=== PATIENT | female | born 1935 | race Caucasian/White ===

== ENCOUNTER 2022-01-27 10:47 | Observation (INO) | payer OTHER, SELFPAY ==
[2022-01-27] VITALS (28 sets, daily range): BP systolic 108–201; BP diastolic 52–95; PULSE 89–90; RESP 18–32; TEMP 35.9–36.7; O2SAT 89–98; BMI 40.3
[2022-01-27] MEDS: ALBUTEROL 2.5 MG/3 ML NEB (ADULT) INH (11:10)
--- NOTE | 2022-01-27 11:16 | DI.RAD.S_ITS ---
PROCEDURE: XR CHEST 1V INDICATIONS: chest pain TECHNIQUE: One view of the chest was acquired. COMPARISON: None. FINDINGS: Surgical changes and devices: Right chest wall pacer is seen with a single intact lead. Lungs and pleura: Subtle increased interstitial markings are noted, probably chronic but could be due to mild pulmonary edema. No prior imaging is available for comparison. No pleural effusions or pneumothorax. Mediastinum: Mediastinal contours appear normal. Heart size is enlarged. Bones and chest wall: No suspicious bony lesions. Overlying soft tissues appear unremarkable. IMPRESSION: 1. Cardiomegaly. 2. Subtle increased interstitial markings bilaterally could be chronic or due to mild pulmonary edema. No prior imaging is available for comparison. Dictated by: Edilberto Young M.D. on 01/27/2022 at 11:06 Approved by: Edilberto Young M.D. on 01/27/2022 at 11:07
[2022-01-27 11:58] LABS: Add Manual Diff / Slide Review NO; Basophils Absolute Auto 100 /uL (0-100); Basophils Percent Auto 0.9 % (0-2); Eosinophils Absolute Auto 0 /uL (0-450); Eosinophils Percent Auto 0.1 % (2-4); Hematocrit 41.9 % (36-46); Hemoglobin 14.1 g/dL (12.0-16.0); Lymphocytes Absolute Auto 1300 /uL (1100-4500); Lymphocytes Percent Auto 16.7 % (25-40); Mean Corpuscular HGB Conc 33.6 % (30-36); Mean Corpuscular Hemoglobin 28.8 PG (26-34); Mean Corpuscular Volume 85.6 fL (80-100); Monocytes Absolute Auto 1100 /uL (0-900); Monocytes Percent Auto 13.2 % (3-14); Neutrophils Absolute Auto 5600 /uL (1500-7000); Neutrophils Percent Auto 69.1 % (50-75); Platelet Count 203 X10^3/uL (150-400); Red Blood Cell Count 4.89 X10^6/uL (4.0-5.2); Red Cell Distribution Width 14.9 % (11.6-14.8); White Blood Cell Count 8.1 X10^3/uL (4.5-11.0)
[2022-01-27 12:08] LABS: COVID19 -Nasal RAPID Negative (Negative)
[2022-01-27 12:13] LABS: Alanine Aminotransferase 21 IU/L (<35); Albumin 4.3 g/dL (3.5-5.0); Albumin Globulin Ratio 1.2 (1.0-2.8); Alkaline Phosphatase 83 U/L (38-126); Aspartate Aminotransferase 33 IU/L (14-36); BUN Creatinine Ratio 18.4 (6-22); Blood Urea Nitrogen 19 mg/dL (7-17); Carbon Dioxide 25 mmol/L (22-32); Chloride 105 mmol/L (98-107); Creatine Kinase 153 U/L (30-135); Estimated Glomerular Filt Rate 54 mL/min (>60); Globulin 3.6 g/dL (1.7-4.1); Glucose 112 mg/dL (80-110); HEMOLYSIS 19 (0-50); Lipase 46 U/L (23-300); Magnesium 1.7 mg/dL (1.6-2.3); Sodium 138 mmol/L (137-145); Total Protein 7.9 g/dL (6.3-8.2)
[2022-01-27 12:14] LABS: Appearance Urine UA CLEAR; Bilirubin Urine UA NEGATIVE (NEGATIVE); Color Urine UA YELLOW; Glucose Urine UA NEGATIVE (Negative); Ketones Urine UA NEGATIVE (NEGATIVE); Leukocyte Esterase Urine UA 2+ (NEGATIVE); Nitrite Urine UA POSITIVE (Negative); Occult Blood Urine UA 3+ (Negative); Protein Urine UA 1+ (Negative); Urobilinogen Urine UA 0.2 E.U./dL (0.2)
[2022-01-27 12:28] LABS: NT-proBNP (BNP-Adult 18+) 3980 pg/mL (<450); Troponin I 0.151 ng/mL (0.01-0.034)
--- NOTE | 2022-01-27 12:32 | ED.SOB ---
HPI - SOB/Dyspnea General Chief Complaint: Shortness of Breath/Dyspnea Stated Complaint: cough weezing breathing fast x7 days Time Seen by Provider: 01/27/22 11:02 Source: patient and family (granddaughter) Mode of arrival: Ambulatory Limitations: no limitations History of Present Illness HPI Narrative: This is an 86-year-old female with history of atrial fibrillation, CHF, prior DC with pacemaker, cardiac stents, prior blood clot who used to be anticoagulated for Coumadin. Patient had cardiac stents placed and had complication with vascular injury and up with ex lap, open wound and cholecystectomy. She is also had breast cancer with a left partial mastectomy. Patient has stopped all of her medications in the last year including her Coumadin, antihypertensives and Lasix. Patient has had increasing shortness of breath, nonproductive cough and orthopnea for the past week. She denies any chest pain or pressure. She has been wheezy which they have noted particularly with ambulation. No fevers or chills. No nausea or vomiting. No diarrhea constipation. No urinary issues. No new swelling in extremities. Patient tried home pediatric dose of albuterol yesterday. She lives in [place] she has not been back to see the doctor for some time. Related Data Previous Rx's Medication Instructions Recorded furosemide 40 mg tablet 40 mg PO QAM 30 days #30 tabs 01/28/22 metoprolol tartrate 100 mg tablet 100 mg PO QAM 30 days #30 tabs 01/28/22 nitrofurantoin macrocrystal 100 mg 100 mg PO BID 5 days #10 caps 01/28/22 capsule rivaroxaban 20 mg tablet 20 mg PO QPM 30 days #30 tabs 01/28/22 Allergies Allergy/AdvReac Type Severity Reaction Status Date / Time No Known Drug Allergies Allergy Unverified 01/27/22 16:29 Review of Systems Review of Systems ROS Unobtainable: All systems reviewed & are unremarkable except as noted in HPI and below Patient History Medical History (Updated 01/27/22 @ 16:22 by Nilson Nolan DO) CAD (coronary artery disease) DVT (deep venous thrombosis) Heart failure HTN (hypertension) Pacemaker Paroxysmal atrial fibrillation Surgical History (Updated 01/27/22 @ 16:10 by Nilson Nolan DO) H/O exploratory laparotomy H/O heart artery stent Family History (Updated 01/27/22 @ 16:10 by Nilson Nolan DO) Father Hypertension Mother Hypertension Social History household members: children Smoking Status: Never smoker alcohol intake: never Smoking Status: Former smoker alcohol intake frequency: other Substance Use Type: does not use Exam Narrative Exam Narrative: GENERAL: Alert and oriented x three, elderly female in mild distress. HEENT: Head normocephalic, atraumatic, EOMI, pupils reactive, face symmetric, moist mucous membranes NECK: Supple, full range of motion CARDIOVASCULAR: Regular rate and rhythm without murmurs, rubs or gallops. No swelling bilateral lower extremities. RESPIRATORY: Breath sounds equal bilaterally, positive bilateral expiratory wheezes, no rales or rhonchi. Intermittent tachypnea. Patient is able to speak in full sentences. She is a dry nonproductive cough. Patient said about 30? on her left side. ABDOMEN: Soft, nontender. Normoactive bowel sounds all 4 quadrants. No guarding or rebound, rigidity, no mass : No CVA tenderness EXTREMITIES: Normal range of motion, no clubbing or edema. Neurovascularly intact NEUROLOGICAL: Cranial nerves II through XII grossly intact. Moving all extremities SKIN: Warm, dry, no petechiae, no rashes or lesions. Initial Vital Signs Initial Vital Signs: Vital Signs Temperature 98.0 F 01/27/22 11:04 Pulse Rate 90 01/27/22 11:04 Respiratory Rate 22 01/27/22 11:04 Blood Pressure 201/95 H 01/27/22 11:04 Pulse Oximetry 92 01/27/22 11:04 Oxygen Delivery Method 01/27/22 11:04 Course Orders Ordered: Discontinued Medications Acetaminophen (Acetaminophen 325 Mg Tablet) 975 mg PO Q8H PRN PRN Reason: Pain, Mild (1-3) Albuterol (Albuterol 2.5 Mg/3 Ml Neb (Adult)) 2.5 mg INH NOW ONE Stop: 01/27/22 11:07 Last Admin: 01/27/22 11:10 Dose: 2.5 mg Documented By: SAT Albuterol (Albuterol 2.5 Mg/3 Ml Neb (Adult)) 2.5 mg INH [id number] PRN PRN Reason: Shortness Of Breath Albuterol/Ipratropium (Albuterol/Ipratropium 3 Ml Ampul) 3 ml INH [id number] PRN PRN Reason: Shortness Of Breath Last Admin: 01/28/22 09:18 Dose: 3 ml Documented By: Admin: 01/28/22 07:38 Dose: 3 ml Documented By: Admin: 01/27/22 13:14 Dose: 3 ml Documented By: YARELIS Apixaban (Apixaban 5 Mg Tablet) 5 mg PO BID YOHANNES Last Admin: 01/28/22 07:27 Dose: 5 mg Documented By: Admin: 01/27/22 22:16 Dose: 5 mg Documented By: SHEYLA Aspirin (Aspirin 81 Mg Chew Tab) 324 mg PO NOW ONE Stop: 01/27/22 12:56 Last Admin: 01/27/22 13:22 Dose: 324 mg Documented By: ORNI Benzonatate (Benzonatate 100 Mg Capsule) 100 mg PO TID PRN PRN Reason: Cough Last Admin: 01/28/22 07:27 Dose: 100 mg Documented By: MELANIE Bumetanide (Bumetanide 1 Mg/4 Ml Vial) 0.5 mg IV NOW ONE Stop: 01/27/22 13:10 Last Admin: 01/27/22 13:23 Dose: 0.5 mg Documented By: RONI Furosemide (Furosemide 40 Mg/4 Ml Vial) 40 mg IV NOW ONE Stop: 01/27/22 13:03 Last Admin: 01/27/22 14:53 Dose: Not Given Documented By: RONI Heparin Sodium (Porcine) (Heparin 5,000 Unit/Ml Vial) 5,000 unit IV NOW ONE Stop: 01/27/22 12:56 Last Admin: 01/27/22 13:22 Dose: 5,000 unit Documented By: RONI Ceftriaxone Sodium 2,000 mg/ (Sodium Chloride) 100 mls @ 200 mls/hr IV NOW ONE Stop: 01/27/22 15:29 Last Infusion: 01/27/22 23:27 Dose: 0 mls/hr Documented By: Admin: 01/27/22 16:11 Dose: 200 mls/hr Documented By: RONI Ceftriaxone Sodium 1,000 mg/ (Sodium Chloride) 100 mls @ 200 mls/hr IV Q24H YOHANNES Stop: 01/30/22 14:59 Methylprednisolone (Methylprednisolone 125 Mg/2 Ml Vial) 125 mg IV NOW ONE Stop: 01/27/22 12:56 Last Admin: 01/27/22 13:22 Dose: 125 mg Documented By: NR Ondansetron HCl (Ondansetron 4 Mg Odt) 4 mg PO Q8HR PRN PRN Reason: Nausea And Vomiting Consultations Consultation #1: Dr. Salas, cardiology. Recommends aspirin, Bumex preferred over Lasix, echo he would not persist with heparin drip at this time in LEs patient is having active chest pain or persistently rising troponin. Recommend diuresing about 2 L of next 24-48 hours if patient is felt to be comfortable kept here he feels this is appropriate. If hospitalist his uncomfortable keeping patient or myself they are happy to follow the patient at outside facility. Vital Signs Vital signs: Vital Signs - 8 hr 01/27/22 11:04 01/27/22 11:20 01/27/22 11:28 Temperature 98.0 F Pulse Rate 90 89 89 Respiratory Rate 22 32 H 22 Blood Pressure 201/95 H Pulse Oximetry 92 92 94 Oxygen Delivery Method Room Air Room Air 01/27/22 11:30 01/27/22 11:30 01/27/22 11:46 Temperature Pulse Rate 89 Respiratory Rate 21 Blood Pressure 186/89 H 129/78 Pulse Oximetry 93 Oxygen Delivery Method 01/27/22 11:46 01/27/22 11:50 01/27/22 11:50 Temperature Pulse Rate 89 89 Respiratory Rate 22 22 Blood Pressure 143/85 H Pulse Oximetry 94 94 Oxygen Delivery Method 01/27/22 12:00 01/27/22 12:00 01/27/22 12:10 Temperature Pulse Rate 89 Respiratory Rate Blood Pressure 141/64 H 138/71 Pulse Oximetry 92 Oxygen Delivery Method 01/27/22 12:10 01/27/22 12:20 01/27/22 12:20 Temperature Pulse Rate 90 89 Respiratory Rate 22 25 H Blood Pressure 135/64 Pulse Oximetry 94 91 Oxygen Delivery Method 01/27/22 12:30 01/27/22 12:31 01/27/22 12:31 Temperature Pulse Rate 89 89 Respiratory Rate 27 H Blood Pressure 152/67 H Pulse Oximetry 92 93 Oxygen Delivery Method 01/27/22 12:40 01/27/22 12:40 01/27/22 13:14 Temperature Pulse Rate 89 Respiratory Rate 27 H Blood Pressure 127/60 Pulse Oximetry 92 93 Oxygen Delivery Method Room Air [facility]/Dyspnea Lab Data Result diagrams: 01/28/22 05:42 01/28/22 05:42 Labs: Lab Results 01/27/22 01/27/22 01/27/22 Range/Units 11:24 11:42 11:42 WBC 8.1 (4.5-11.0) X10^3/uL RBC 4.89 (4.0-5.2) X10^6/uL Hgb 14.1 (12.0-16.0) g/dL Hct 41.9 (36-46) % MCV 85.6 (80-100) fL MCH 28.8 (26-34) PG MCHC 33.6 (30-36) % RDW 14.9 H (11.6-14.8) % Plt Count 203 (150-400) X10^3/uL Neut % (Auto) 69.1 (50-75) % Lymph % (Auto) 16.7 L (25-40) % Piatt % (Auto) 13.2 (3-14) % Eos % (Auto) 0.1 L (2-4) % Baso % (Auto) 0.9 (0-2) % Neut # (Auto) 5600 (0856-9280) /uL Lymph # (Auto) 1300 (7082-4899) /uL Piatt # (Auto) 1100 H (0-900) /uL Eos # (Auto) 0 (0-450) /uL Baso # (Auto) 100 (0-100) /uL PT (10.1-12.7) SECONDS INR (0.9-1.3) APTT (26.4-36.2) SECONDS Sodium 138 (137-145) mmol/L Potassium 4.0 (3.4-5.1) mmol/L Chloride 105 (98-107) mmol/L Carbon Dioxide 25 (22-32) mmol/L BUN 19 H (7-17) mg/dL Creatinine 1.03 (0.52-1.04) mg/dL Estimated GFR 54 L (>60) mL/min BUN/Creatinine Ratio 18.4 (6-22) Glucose 112 H (80-110) mg/dL Calcium 9.0 (8.4-10.2) mg/dL Magnesium 1.7 (1.6-2.3) mg/dL Total Bilirubin 1.0 (0.2-1.3) mg/dL AST 33 (14-36) IU/L ALT 21 (<35) IU/L Alkaline Phosphatase 83 (38-126) U/L Total Creatine Kinase 153 H (30-135) U/L CK-MB (CK-2) 1.49 (<2.37) ng/mL CK-MB (CK-2) Rel Index 1.0 L (1.5-5.0) % Troponin I 0.151 H* (0.01-0.034) ng/mL NT-Pro-B Natriuret Pep (<450) pg/mL Total Protein 7.9 (6.3-8.2) g/dL Albumin 4.3 (3.5-5.0) g/dL Globulin 3.6 (1.7-4.1) g/dL Albumin/Globulin Ratio 1.2 (1.0-2.8) Lipase 46 (23-300) U/L Urine Color Urine Appearance Urine pH (4.5-8.0) Ur Specific [place] (1.000-1.035) Urine Protein (Negative) Urine Glucose (UA) (Negative) g/dL Urine Ketones (NEGATIVE) Urine Occult Blood (Negative) Urine Nitrate (Negative) Urine Bilirubin (NEGATIVE) Urine Urobilinogen (0.2) E.U./dL Ur Leukocyte Esterase (NEGATIVE) Urine RBC (0-5/HPF) Urine WBC (0-5/HPF) Ur Squamous Epith Cells (0-5/HPF) Urine Bacteria (None) Ur Culture Indicated? Chlamy pneumoniae PCR (Not Detect) Adenovirus (PCR) (Not Detect) B. pertussis DNA (PCR) (Not Detecte) B.parapertussis DNA PCR (Not Detecte) Coronavirus OC43 (PCR) (Not Detect) Coronavirus HKU1 (PCR) (Not Detect) Coronavirus 229E (PCR) (Not Detect) SARS-CoV-2 (PCR) Negative (Negative) Coronavirus NL63 (PCR) (Not Detect) Human Metapneumovir PCR (Not Detect) Influenza Type A (PCR) (Not Detect) Influenza Type B (PCR) (Not Detect) M. pneumoniae (PCR) (Not Detect) Parainfluenza 1 (PCR) (Not Detect) Parainfluenza 2 (PCR) (Not Detect) Parainfluenza 3 (PCR) (Not Detect) Parainfluenza 4 (PCR) (Not Detect) RSV (PCR) (Not Detect) Entero/Rhino (PCR) (Not Detect) 01/27/22 01/27/22 01/27/22 Range/Units 11:42 11:42 12:00 WBC (4.5-11.0) X10^3/uL RBC (4.0-5.2) X10^6/uL Hgb (12.0-16.0) g/dL Hct (36-46) % MCV (80-100) fL MCH (26-34) PG MCHC (30-36) % RDW (11.6-14.8) % Plt Count (150-400) X10^3/uL Neut % (Auto) (50-75) % Lymph % (Auto) (25-40) % Piatt % (Auto) (3-14) % Eos % (Auto) (2-4) % Baso % (Auto) (0-2) % Neut # (Auto) (3463-6178) /uL Lymph # (Auto) (6504-5507) /uL Piatt # (Auto) (0-900) /uL Eos # (Auto) (0-450) /uL Baso # (Auto) (0-100) /uL PT 12.3 (10.1-12.7) SECONDS INR 1.1 (0.9-1.3) APTT 28 (26.4-36.2) SECONDS Sodium (137-145) mmol/L Potassium (3.4-5.1) mmol/L Chloride (98-107) mmol/L Carbon Dioxide (22-32) mmol/L BUN (7-17) mg/dL Creatinine (0.52-1.04) mg/dL Estimated GFR (>60) mL/min BUN/Creatinine Ratio (6-22) Glucose (80-110) mg/dL Calcium (8.4-10.2) mg/dL Magnesium (1.6-2.3) mg/dL Total Bilirubin (0.2-1.3) mg/dL AST (14-36) IU/L ALT (<35) IU/L Alkaline Phosphatase (38-126) U/L Total Creatine Kinase (30-135) U/L CK-MB (CK-2) (<2.37) ng/mL CK-MB (CK-2) Rel Index (1.5-5.0) % Troponin I (0.01-0.034) ng/mL NT-Pro-B Natriuret Pep 3980 H (<450) pg/mL Total Protein (6.3-8.2) g/dL Albumin (3.5-5.0) g/dL Globulin (1.7-4.1) g/dL Albumin/Globulin Ratio (1.0-2.8) Lipase (23-300) U/L Urine Color Yellow Urine Appearance Clear Urine pH 5.0 (4.5-8.0) Ur Specific [place] 1.020 (1.000-1.035) Urine Protein 1+ H (Negative) Urine Glucose (UA) Negative (Negative) g/dL Urine Ketones Negative (NEGATIVE) Urine Occult Blood 3+ H (Negative) Urine Nitrate Positive H (Negative) Urine Bilirubin Negative (NEGATIVE) Urine Urobilinogen 0.2 (0.2) E.U./dL Ur Leukocyte Esterase 2+ H (NEGATIVE) Urine RBC 10-30/hpf H (0-5/HPF) Urine WBC 30-100/hpf H (0-5/HPF) Ur Squamous Epith Cells 5-10 /hpf H (0-5/HPF) Urine Bacteria Many (>30) H (None) Ur Culture Indicated? Specimen cultured Chlamy pneumoniae PCR (Not Detect) Adenovirus (PCR) (Not Detect) B. pertussis DNA (PCR) (Not Detecte) B.parapertussis DNA PCR (Not Detecte) Coronavirus OC43 (PCR) (Not Detect) Coronavirus HKU1 (PCR) (Not Detect) Coronavirus 229E (PCR) (Not Detect) SARS-CoV-2 (PCR) (Negative) Coronavirus NL63 (PCR) (Not Detect) Human Metapneumovir PCR (Not Detect) Influenza Type A (PCR) (Not Detect) Influenza Type B (PCR) (Not Detect) M. pneumoniae (PCR) (Not Detect) Parainfluenza 1 (PCR) (Not Detect) Parainfluenza 2 (PCR) (Not Detect) Parainfluenza 3 (PCR) (Not Detect) Parainfluenza 4 (PCR) (Not Detect) RSV (PCR) (Not Detect) Entero/Rhino (PCR) (Not Detect) 01/27/22 01/27/22 Range/Units 13:35 13:51 WBC (4.5-11.0) X10^3/uL RBC (4.0-5.2) X10^6/uL Hgb (12.0-16.0) g/dL Hct (36-46) % MCV (80-100) fL MCH (26-34) PG MCHC (30-36) % RDW (11.6-14.8) % Plt Count (150-400) X10^3/uL Neut % (Auto) (50-75) % Lymph % (Auto) (25-40) % Piatt % (Auto) (3-14) % Eos % (Auto) (2-4) % Baso % (Auto) (0-2) % Neut # (Auto) (2531-4279) /uL Lymph # (Auto) (6078-7311) /uL Piatt # (Auto) (0-900) /uL Eos # (Auto) (0-450) /uL Baso # (Auto) (0-100) /uL PT (10.1-12.7) SECONDS INR (0.9-1.3) APTT (26.4-36.2) SECONDS Sodium (137-145) mmol/L Potassium (3.4-5.1) mmol/L Chloride (98-107) mmol/L Carbon Dioxide (22-32) mmol/L BUN (7-17) mg/dL Creatinine (0.52-1.04) mg/dL Estimated GFR (>60) mL/min BUN/Creatinine Ratio (6-22) Glucose (80-110) mg/dL Calcium (8.4-10.2) mg/dL Magnesium (1.6-2.3) mg/dL Total Bilirubin (0.2-1.3) mg/dL AST (14-36) IU/L ALT (<35) IU/L Alkaline Phosphatase (38-126) U/L Total Creatine Kinase (30-135) U/L CK-MB (CK-2) (<2.37) ng/mL CK-MB (CK-2) Rel Index (1.5-5.0) % Troponin I 0.124 H* (0.01-0.034) ng/mL NT-Pro-B Natriuret Pep (<450) pg/mL Total Protein (6.3-8.2) g/dL Albumin (3.5-5.0) g/dL Globulin (1.7-4.1) g/dL Albumin/Globulin Ratio (1.0-2.8) Lipase (23-300) U/L Urine Color Urine Appearance Urine pH (4.5-8.0) Ur Specific [place] (1.000-1.035) Urine Protein (Negative) Urine Glucose (UA) (Negative) g/dL Urine Ketones (NEGATIVE) Urine Occult Blood (Negative) Urine Nitrate (Negative) Urine Bilirubin (NEGATIVE) Urine Urobilinogen (0.2) E.U./dL Ur Leukocyte Esterase (NEGATIVE) Urine RBC (0-5/HPF) Urine WBC (0-5/HPF) Ur Squamous Epith Cells (0-5/HPF) Urine Bacteria (None) Ur Culture Indicated? Chlamy pneumoniae PCR Not detected (Not Detect) Adenovirus (PCR) Not detected (Not Detect) B. pertussis DNA (PCR) Not detected (Not Detecte) B.parapertussis DNA PCR Not detected (Not Detecte) Coronavirus OC43 (PCR) Not detected (Not Detect) Coronavirus HKU1 (PCR) Not detected (Not Detect) Coronavirus 229E (PCR) Not detected (Not Detect) SARS-CoV-2 (PCR) Not detected (Negative) Coronavirus NL63 (PCR) Not detected (Not Detect) Human Metapneumovir PCR Not detected (Not Detect) Influenza Type A (PCR) Not detected (Not Detect) Influenza Type B (PCR) Not detected (Not Detect) M. pneumoniae (PCR) Not detected (Not Detect) Parainfluenza 1 (PCR) Not detected (Not Detect) Parainfluenza 2 (PCR) Not detected (Not Detect) Parainfluenza 3 (PCR) Detected H (Not Detect) Parainfluenza 4 (PCR) Not detected (Not Detect) RSV (PCR) Not detected (Not Detect) Entero/Rhino (PCR) Not detected (Not Detect) Point of Care Testing Glucose POC 100 Imaging Data Chest x-ray: Radiologist's Impression: [address] [address] XRay Report Signed Patient: Laya Busch MR#: [id number] : 1935 Acct:[id number] Age/Sex: 86 / F Date of Service: 01/27/22 Loc: ED Accession Number: [id number] ?? Procedure: XR chest 1V Ordering Provider: Cynthia Stallworth D.O. PROCEDURE:? XR CHEST 1V ? INDICATIONS:? chest pain ? TECHNIQUE:? One view of the chest was acquired.? ? COMPARISON:? None. ? FINDINGS:? ? Surgical changes and devices:? Right chest wall pacer is seen with a single intact lead. ? Lungs and pleura:? Subtle increased interstitial markings are noted, probably chronic but could be due to mild pulmonary edema.? No prior imaging is available for comparison.? No pleural effusions or pneumothorax.? ? Mediastinum:? Mediastinal contours appear normal.? Heart size is enlarged.? ? Bones and chest wall:? No suspicious bony lesions.? Overlying soft tissues appear unremarkable.? ? IMPRESSION:? 1. Cardiomegaly. 2. Subtle increased interstitial markings bilaterally could be chronic or due to mild pulmonary edema.? No prior imaging is available for comparison. ? ? Dictated by: Edilberto Young M.D. on 01/27/2022 at 11:06 ? ? Approved by: Edilberto Young M.D. on 01/27/2022 at 11:07 CT scan - chest: Radiologist's Impression: [place] [address] CT Scan Report Signed Patient: Laya Busch MR#: [id number] : 1935 Acct:[id number] Age/Sex: 86 / F Date of Service: 01/27/22 Loc: ED Accession Number: [id number] ?? Procedure: CT angio chest PE protocol Ordering Provider: Cynthia Stallworth D.O. PROCEDURE:? CT ANGIO CHEST PE PROTOCOL ? INDICATIONS:? cough, wheeze, + trop, hx blood clots. ? TECHNIQUE:? After the administration of intravenous contrast, 2 mm thick sections acquired from the pulmonary apices to the posterior costophrenic angles.? 3-dimensional maximum intensity projection (MIP) coronal and sagittal reformats were then acquired through the thorax.? For radiation dose reduction, the following was used:? automated exposure control, adjustment of mA and/or kV according to patient size.? ? COMPARISON:? [facility], CR, XR CHEST 1V, 01/27/2022, 11:44. ? FINDINGS:? Image quality:? Excellent.? ? Pulmonary arteries:? Pulmonary arteries are normal in size, and demonstrate no intraluminal filling defects to suggest central pulmonary embolism.? ? Lungs and pleura:? Lungs are clear.? There is bilateral septal thickening and diffuse subtle ground-glass opacities most consistent with subtle pulmonary edema.? Val B lines are seen peripherally.? No pleural effusions or pneumothorax.? Central and peripheral airways are patent.? ? Mediastinum:? Heart size is normal, without pericardial effusion.? There is left atrial enlargement.? No mediastinal adenopathy.? Mild bilateral hilar adenopathy.? Thoracic aorta is normal in caliber and enhancement.? Esophagus is normal in caliber, without hiatal hernia.? ? Bones and chest wall:? No suspicious bony lesions.? Ribs and thoracic spine appear intact throughout.? Thyroid gland is normal.? No axillary or supraclavicular adenopathy.? ? Abdomen:? Visualized upper abdominal solid organs appear normal in the early arterial phase of enhancement.? ? IMPRESSION:? 1. No pulmonary embolism. 2. Subtle diffuse ground-glass opacities and septal thickening with Val B lines consistent with mild CHF.? ? ? Dictated by: Edilberto Young M.D. on 01/27/2022 at 13:30 ? ? Approved by: Edilberto Young M.D. on 01/27/2022 at 13:41?? ECG Data Attestation: I personally reviewed and interpreted this ECG as follows: Prior ECG tracings: not available for review Interpretation: ventricularly paced rhythm, rate of 89, qrs of 170, qtc of 489. MDM Narrative Medical decision making narrative: This is a 86-year-old female who comes in with complaint of increasing shortness of breath, wheezing, no acute active chest pain but persistent shortness of breath and orthopnea who has a history of cardiac DC, stents, hypertension, atrial fibrillation and blood clots who has stopped all her medications including Coumadin in the past year. Patient presents today in [id number] distress but does appear to be fluid overloaded with a positive troponin, paced rhythm on EKG, BNP is elevated, troponin trended downwards but is positive x2, CT PE was obtained and shows no pulmonary emboli but changes consistent with CHF. Patient's renal function labs otherwise appear appropriate. Respiratory panel is positive for parainfluenza and likely worsening her symptoms and wheezing. Patient has occasional desat's to 89% in room. Case was discussed with cardiology who recommends treating a CHF exacerbation diuresing and does not recommend continuing heparin at this time. Recommendations reviewed with Dr. Nolan who evaluated patient in the ED and accepts for observation. Discharge Plan Departure Patient Disposition: Admitted as Observation Clinical Impression: Acute exacerbation of CHF (congestive heart failure), Acute UTI, Parainfluenza infection Admit Date/Time: 01/27/22 15:58 Admit Provider: Nilson Nolan
[2022-01-27 12:45] LABS: INR 1.1 (0.9-1.3); Prothrombin Time 12.3 SECONDS (10.1-12.7)
[2022-01-27 12:47] LABS: Creatine Kinase MB 1.49 ng/mL (<2.37); PTT Partial Thromboplastin Tim 28 SECONDS (26.4-36.2)
--- NOTE | 2022-01-27 12:55 | DI.CT.S_ITS ---
PROCEDURE: CT ANGIO CHEST PE PROTOCOL INDICATIONS: cough, wheeze, + trop, hx blood clots. TECHNIQUE: After the administration of intravenous contrast, 2 mm thick sections acquired from the pulmonary apices to the posterior costophrenic angles. 3-dimensional maximum intensity projection (MIP) coronal and sagittal reformats were then acquired through the thorax. For radiation dose reduction, the following was used: automated exposure control, adjustment of mA and/or kV according to patient size. COMPARISON: [facility], CR, XR CHEST 1V, 01/27/2022, 11:44. FINDINGS: Image quality: Excellent. Pulmonary arteries: Pulmonary arteries are normal in size, and demonstrate no intraluminal filling defects to suggest central pulmonary embolism. Lungs and pleura: Lungs are clear. There is bilateral septal thickening and diffuse subtle ground-glass opacities most consistent with subtle pulmonary edema. Val B lines are seen peripherally. No pleural effusions or pneumothorax. Central and peripheral airways are patent. Mediastinum: Heart size is normal, without pericardial effusion. There is left atrial enlargement. No mediastinal adenopathy. Mild bilateral hilar adenopathy. Thoracic aorta is normal in caliber and enhancement. Esophagus is normal in caliber, without hiatal hernia. Bones and chest wall: No suspicious bony lesions. Ribs and thoracic spine appear intact throughout. Thyroid gland is normal. No axillary or supraclavicular adenopathy. Abdomen: Visualized upper abdominal solid organs appear normal in the early arterial phase of enhancement. IMPRESSION: 1. No pulmonary embolism. 2. Subtle diffuse ground-glass opacities and septal thickening with Val B lines consistent with mild CHF. Dictated by: Edilberto Young M.D. on 01/27/2022 at 13:30 Approved by: Edilberto Young M.D. on 01/27/2022 at 13:41
[2022-01-27 12:56] LABS: RBC Urine 10-30/HPF (0-5/HPF); Squamous Epithelial Cell Urine 5-10 /HPF (0-5/HPF); WBC Urine 30-100/HPF (0-5/HPF)
[2022-01-27 12:57] LABS: Bacteria Urine Many (>30); Culture Indicated Urine Specimen Cultured
[2022-01-27] MEDS: ALBUTEROL/IPRATROPIUM 3 ML AMPUL INH (13:14)
[2022-01-27] MEDS: ASPIRIN 81 MG CHEW TAB 324 MG PO (13:22)
[2022-01-27] MEDS: methylPREDNISolone 125 MG/2 ML VIAL IV (13:22)
[2022-01-27] MEDS: HEPARIN 5,000 UNIT/ML VIAL 5000 UNIT IV (13:22)
[2022-01-27] MEDS: BUMETANIDE 1 MG/4 ML VIAL 0.5 MG IV (13:23)
[2022-01-27 14:37] LABS: Troponin I 0.124 ng/mL (0.01-0.034)
[2022-01-27 14:40] LABS: Adenovirus Not Detected (Not Detect); B. parapertussis Not Detected (Not Detecte); Bordetella pertussis Not Detected (Not Detecte); Chlamydophila pneumoniae Not Detected (Not Detect); Coronavirus 229E Not Detected (Not Detect); Coronavirus HKU1 Not Detected (Not Detect); Coronavirus NL 63 Not Detected (Not Detect); Coronavirus OC43 Not Detected (Not Detect); Human Metapneumovirus Not Detected (Not Detect); Human Rhinovirus/Enterovirus Not Detected (Not Detect); Influenza A Not Detected (Not Detect); Influenza B Not Detected (Not Detect); Mycoplasma pneumoniae Not Detected (Not Detect); Parainfluenza Virus 1 Not Detected (Not Detect); Parainfluenza Virus 2 Not Detected (Not Detect); Parainfluenza Virus 3 Detected (Not Detect); Parainfluenza Virus 4 Not Detected (Not Detect); Respiratory Syncytial Virus Not Detected (Not Detect); SARS- CoV-2 Not Detected (Not Detecte)
--- NOTE | 2022-01-27 16:09 | PM.HP.1 ---
History of Present Illness History of Present Illness Date Patient Seen: 01/27/22 Time Patient Seen: 16:44 Chief complaint: cough weezing breathing fast x7 days Narrative: This is an 86 year old female with a past medical history of CAD with prior cardiac stenting a couple of years ago, heart failure, hypertension, chronic atrial fibrillation with permanent pacemaker placement, prior DVT in her lower extremities who is visiting from [place] for the past week and a half with her daughter. The patient states that she stopped taking her medications 2 months ago, around the time of daylight savings after her talent solutions manager would not see her because she was an hour late after the time change. Since then the patient has not had any symptoms but starting week ago she noticed a worsening cough that has been keeping her up at night and worsening shortness of breath. She denies any chest pain, nausea, vomiting, abdominal pain, dysuria, though does note some urinary frequency. She denies any diarrhea or constipation, lower extremity edema, or rash. She does have some mild orthopnea and her cough has been worse at night. She denies any known sick contacts, fever, chills, headache, or vision changes. She does not have a sore throat, or rhinorrhea. In the emergency room, the patient did have intermittent desaturations to 89% on room air, though these were not sustained and during my evaluation she was above 92% on room air. She was tachypneic in the mid 30s with audible wheezing. Initially she was quite hypertensive but was given both furosemide and Bumex, and a few hours later her she was borderline hypotensive. Her breathing she states did not improve much after initial diuresis. She feels quite similar to when she came in. Chest x-ray showed mild vascular congestion, as interpreted by me. CT angiogram was performed which did not show evidence of PE, but did show evidence of vascular congestion. Laboratory evaluation revealed an unremarkable CBC, coagulation studies, and basic chemistry evaluation. Troponin was initially elevated at 0.151, which down trended to 0.124 on repeat. ProBNP was elevated at 3980. Urinalysis was grossly positive with many wbc's, nitrate positive, and many urine bacteria. Respiratory PCR panel was also positive for parainfluenza 3. COVID-19 testing was negative. Patient was admitted for further management of her respiratory distress, likely secondary to a combination of CHF exacerbation in the setting of medications cessation, and an acute parainfluenza infection. Prior medications per review of electronic records (She has, as noted above, not taken these in many months) Allopurinol 100 mg b.i.d., digoxin 250 mcg daily, furosemide 40 mg daily, levothyroxine 75 mcg daily, metoprolol 100 mg b.i.d., sertraline 50 mg daily, clopidogrel 75 mg daily, coumadin (unknown dose). Patient History Medical History (Updated 01/27/22 @ 16:22 by Nilson Nolan DO) CAD (coronary artery disease) DVT (deep venous thrombosis) Heart failure HTN (hypertension) Pacemaker Paroxysmal atrial fibrillation Surgical History (Updated 01/27/22 @ 16:10 by Nilson Nolan DO) H/O exploratory laparotomy H/O heart artery stent Family & Social History Family History (Updated 01/27/22 @ 16:10 by Nilson Nolan DO) Father Hypertension Mother Hypertension Safety & Behavioral: Feels Safe in Current Yes Environment Been Physically Hurt or No Threatened By a Person Tobacco & Substance use: Smoking Status Former smoker alcohol intake frequency other Substance Use Type does not use Meds Home Medications and Allergies Allergies Allergy/AdvReac Type Severity Reaction Status Date / Time No Known Drug Allergies Allergy Unverified 01/27/22 16:29 Review of Systems Review of Systems Narrative: All other systems reviewed with the patient and are negative unless otherwise stated. Exam Vital Signs (past 8 hours): - 01/27/22 11:04 01/27/22 11:20 01/27/22 11:28 Temperature 98.0 F Pulse Rate 90 89 89 Respiratory Rate 22 32 H 22 Blood Pressure 201/95 H Pulse Oximetry 92 92 94 Oxygen Delivery Method Room Air Room Air 01/27/22 11:30 01/27/22 11:30 01/27/22 11:46 Temperature Pulse Rate 89 Respiratory Rate 21 Blood Pressure 186/89 H 129/78 Pulse Oximetry 93 Oxygen Delivery Method 01/27/22 11:46 01/27/22 11:50 01/27/22 11:50 Temperature Pulse Rate 89 89 Respiratory Rate 22 22 Blood Pressure 143/85 H Pulse Oximetry 94 94 Oxygen Delivery Method 01/27/22 12:00 01/27/22 12:00 01/27/22 12:10 Temperature Pulse Rate 89 Respiratory Rate Blood Pressure 141/64 H 138/71 Pulse Oximetry 92 Oxygen Delivery Method 01/27/22 12:10 01/27/22 12:20 01/27/22 12:20 Temperature Pulse Rate 90 89 Respiratory Rate 22 25 H Blood Pressure 135/64 Pulse Oximetry 94 91 Oxygen Delivery Method 01/27/22 12:30 01/27/22 12:31 01/27/22 12:31 Temperature Pulse Rate 89 89 Respiratory Rate 27 H Blood Pressure 152/67 H Pulse Oximetry 92 93 Oxygen Delivery Method 01/27/22 12:40 01/27/22 12:40 01/27/22 13:14 Temperature Pulse Rate 89 Respiratory Rate 27 H Blood Pressure 127/60 Pulse Oximetry 92 93 Oxygen Delivery Method Room Air 01/27/22 12:50 01/27/22 12:50 01/27/22 13:00 Temperature Pulse Rate 89 Respiratory Rate 31 H Blood Pressure 124/53 L 115/55 L Pulse Oximetry 93 Oxygen Delivery Method 01/27/22 13:00 01/27/22 13:10 01/27/22 13:10 Temperature Pulse Rate 89 89 Respiratory Rate 26 H 28 H Blood Pressure 113/57 L Pulse Oximetry 89 L 89 L Oxygen Delivery Method 01/27/22 13:21 01/27/22 13:21 01/27/22 13:30 Temperature Pulse Rate 89 89 Respiratory Rate 29 H 30 H Blood Pressure 119/60 Pulse Oximetry 98 97 Oxygen Delivery Method 01/27/22 13:33 01/27/22 13:33 01/27/22 14:00 Temperature Pulse Rate 89 89 Respiratory Rate 27 H 26 H Blood Pressure 108/52 L Pulse Oximetry 95 93 Oxygen Delivery Method 01/27/22 14:30 Temperature Pulse Rate 89 Respiratory Rate 27 H Blood Pressure Pulse Oximetry 92 Oxygen Delivery Method Oxygen Delivery Method Room Air Narrative Exam Narrative: General:? Patient is well developed and well nourished, mildly ill appearing with audible wheezing HEENT:? Normocephalic, atraumatic, extraocular muscles intact, oral pharynx is clear and mucous membranes are moist. Neck: supple and symmetric, trachea is midline, no cervical adenopathy. Negative for JVD Chest:? Normal AP diameter and contour without kyphoscoliosis, no tachypnea, equal chest rise bilaterally. Lungs:? Inspiratory and expiratory wheezing, no obvious rhonchi rales though wheezing obscures. Cardio:?RRR no m/r/g. Abdomen: S NT ND. Musculoskeletal:? Muscle strength and tone are equal within normal limits, no deformity. Extremities: trace bilateral non-pitting edema, no joint effusions Skin:? Pale,? Warm to touch,dry and intact with LE venous stasis changes, mild. Neuro:? Alert and orientated x3,? sensation to touch intact in all extremities, no gross deficits noted of cranial nerves. Psych:? Patient has a well-kept appearance, appropriate affect, mental status attitude thought context and judgment are appropriate for age. Objective ECG Impression: V- paced rhythm as interpreted by me. Imaging Chest x-ray: My impression: Mild vascular congestion. Labs Result Diagrams: 01/27/22 11:42 01/27/22 11:42 Labs: Laboratory Results - last 24 hr 01/27/22 01/27/22 01/27/22 11:24 11:42 11:42 WBC 8.1 RBC 4.89 Hgb 14.1 Hct 41.9 MCV 85.6 MCH 28.8 MCHC 33.6 RDW 14.9 H Plt Count 203 Neut % (Auto) 69.1 Lymph % (Auto) 16.7 L Tom[place] % (Auto) 13.2 Eos % (Auto) 0.1 L Baso % (Auto) 0.9 Neut # (Auto) 5600 Lymph # (Auto) 1300 Tompkins # (Auto) 1100 H Eos # (Auto) 0 Baso # (Auto) 100 PT INR APTT Sodium 138 Potassium 4.0 Chloride 105 Carbon Dioxide 25 BUN 19 H Creatinine 1.03 Estimated GFR 54 L BUN/Creatinine Ratio 18.4 Glucose 112 H Calcium 9.0 Magnesium 1.7 Total Bilirubin 1.0 AST 33 ALT 21 Alkaline Phosphatase 83 Total Creatine Kinase 153 H CK-MB (CK-2) 1.49 CK-MB (CK-2) Rel Index 1.0 L Troponin I 0.151 H* NT-Pro-B Natriuret Pep Total Protein 7.9 Albumin 4.3 Globulin 3.6 Albumin/Globulin Ratio 1.2 Lipase 46 Urine Color Urine Appearance Urine pH Ur Specific [place] Urine Protein Urine Glucose (UA) Urine Ketones Urine Occult Blood Urine Nitrate Urine Bilirubin Urine Urobilinogen Ur Leukocyte Esterase Urine RBC Urine WBC Ur Squamous Epith Cells Urine Bacteria Ur Culture Indicated? Chlamy pneumoniae PCR Adenovirus (PCR) B. pertussis DNA (PCR) B.parapertussis DNA PCR Coronavirus OC43 (PCR) Coronavirus HKU1 (PCR) Coronavirus 229E (PCR) SARS-CoV-2 (PCR) Negative Coronavirus NL63 (PCR) Human Metapneumovir PCR Influenza Type A (PCR) Influenza Type B (PCR) M. pneumoniae (PCR) Parainfluenza 1 (PCR) Parainfluenza 2 (PCR) Parainfluenza 3 (PCR) Parainfluenza 4 (PCR) RSV (PCR) Entero/Rhino (PCR) 01/27/22 01/27/22 01/27/22 11:42 11:42 12:00 WBC RBC Hgb Hct MCV MCH MCHC RDW Plt Count Neut % (Auto) Lymph % (Auto) [place] % (Auto) Eos % (Auto) Baso % (Auto) Neut # (Auto) Lymph # (Auto) [place] # (Auto) Eos # (Auto) Baso # (Auto) PT 12.3 INR 1.1 APTT 28 Sodium Potassium Chloride Carbon Dioxide BUN Creatinine Estimated GFR BUN/Creatinine Ratio Glucose Calcium Magnesium Total Bilirubin AST ALT Alkaline Phosphatase Total Creatine Kinase CK-MB (CK-2) CK-MB (CK-2) Rel Index Troponin I NT-Pro-B Natriuret Pep 3980 H Total Protein Albumin Globulin Albumin/Globulin Ratio Lipase Urine Color Yellow Urine Appearance Clear Urine pH 5.0 Ur Specific [place] 1.020 Urine Protein 1+ H Urine Glucose (UA) Negative Urine Ketones Negative Urine Occult Blood 3+ H Urine Nitrate Positive H Urine Bilirubin Negative Urine Urobilinogen 0.2 Ur Leukocyte Esterase 2+ H Urine RBC 10-30/hpf H Urine WBC 30-100/hpf H Ur Squamous Epith Cells 5-10 /hpf H Urine Bacteria Many (>30) H Ur Culture Indicated? Specimen cultured Chlamy pneumoniae PCR Adenovirus (PCR) B. pertussis DNA (PCR) B.parapertussis DNA PCR Coronavirus OC43 (PCR) Coronavirus HKU1 (PCR) Coronavirus 229E (PCR) SARS-CoV-2 (PCR) Coronavirus NL63 (PCR) Human Metapneumovir PCR Influenza Type A (PCR) Influenza Type B (PCR) M. pneumoniae (PCR) Parainfluenza 1 (PCR) Parainfluenza 2 (PCR) Parainfluenza 3 (PCR) Parainfluenza 4 (PCR) RSV (PCR) Entero/Rhino (PCR) 01/27/22 01/27/22 13:35 13:51 WBC RBC Hgb Hct MCV MCH MCHC RDW Plt Count Neut % (Auto) Lymph % (Auto) [place] % (Auto) Eos % (Auto) Baso % (Auto) Neut # (Auto) Lymph # (Auto) [place] # (Auto) Eos # (Auto) Baso # (Auto) PT INR APTT Sodium Potassium Chloride Carbon Dioxide BUN Creatinine Estimated GFR BUN/Creatinine Ratio Glucose Calcium Magnesium Total Bilirubin AST ALT Alkaline Phosphatase Total Creatine Kinase CK-MB (CK-2) CK-MB (CK-2) Rel Index Troponin I 0.124 H* NT-Pro-B Natriuret Pep Total Protein Albumin Globulin Albumin/Globulin Ratio Lipase Urine Color Urine Appearance Urine pH Ur Specific [place] Urine Protein Urine Glucose (UA) Urine Ketones Urine Occult Blood Urine Nitrate Urine Bilirubin Urine Urobilinogen Ur Leukocyte Esterase Urine RBC Urine WBC Ur Squamous Epith Cells Urine Bacteria Ur Culture Indicated? Chlamy pneumoniae PCR Not detected Adenovirus (PCR) Not detected B. pertussis DNA (PCR) Not detected B.parapertussis DNA PCR Not detected Coronavirus OC43 (PCR) Not detected Coronavirus HKU1 (PCR) Not detected Coronavirus 229E (PCR) Not detected SARS-CoV-2 (PCR) Not detected Coronavirus NL63 (PCR) Not detected Human Metapneumovir PCR Not detected Influenza Type A (PCR) Not detected Influenza Type B (PCR) Not detected M. pneumoniae (PCR) Not detected Parainfluenza 1 (PCR) Not detected Parainfluenza 2 (PCR) Not detected Parainfluenza 3 (PCR) Detected H Parainfluenza 4 (PCR) Not detected RSV (PCR) Not detected Entero/Rhino (PCR) Not detected Assessment & Plan Assessment & Plan narrative: 1. Respiratory distress - suspect multifactorial, more likely CHF related than parainfluenza at this time. May have some component of reactive airway given wheezing. No obvious throat swelling on exam to suggest upper airway at this time. - patient is not hypoxic, but does appear visually short of breath with audible wheezing and tachypnea. - given furosemide and bumex in the ER. Will resume bumex tomorrow. - TTE ordered. 2. Acute on chronic heart failure, unknown EF, present on admission - given IV furosemide in the ER and Bumex - will continue bumex 1 mg starting in the AM - TTE ordered. - follow intake and output, daily weights. 3. Parainfluenza infection, possible pneumonia - continue symptomatic treatment with prn albuterol and tessalon perles. 4. chronic atrial fibrillation with PPM placement. - will try to resume home medications. daughter requests apixaban / xarelto instead of coumadin which seems reasonable. - continue apixaban 5 mg BID - previously on metoprolol and digoxin. Will try to resume metoprolol but limited by BP currently after initial diuresis. -will defer starting digoxin to outpatient follow up as she is ventricularly paced on EKG and telemetry. 5. Mycoardial injury, in setting of known CAD s/p stenting with medication cessation - troponin .151 downtrended on repeat. Likely due to respiratory symptoms. - patient without chest pain at this time - restart home plavix for known CAD. - denies history of bleeding on clopidogrel and coumadin. 6. Acute cystitis - ceftriaxone x3 days, follow up urine culture. Code: Full, surrogate daughter DVT: restarting on AC Dispo: patient is admitted under observation status as her stay is expected to exceed two midnights. I have utilized all available immediate resources to obtain, update, or review the patient's current medications. COVID-19 COVID-19 status: Negative Time Spent With Patient Critical Care time: I spent a total of [] minutes of critical care time on this patient's care today; this time is exclusive of procedural time. Quality MIPS - Admit I confirm the patient?s Advance Care Plan is present, Code status is documented, Surrogate decision maker is in patient?s record [If Yes, STOP here]: Yes
[2022-01-27] MEDS: cefTRIAXone 2,000 MG in SODIUM CHLORIDE 0.9% 100 ML 200 MG IV (16:11)
--- NOTE | 2022-01-27 16:56 | PC.NURSE ---
Day shift: Pt on AC unit at approx 1635 from ED. She is A&Ox4. Calm and cooperative. IV antibiotics infusing that she came up with. On tele and LINUX UNIX ADMINISTRATOR's aware. Contact precautions in place per protocol. BP elevated 155/77. RR 24. RA 96%. Wheezes throughout rt side greater than left. Agrees to not get OOB w/o help from staff. Have her as a high fall risk for now. Oriented to room and call light. Call light in reach. Dr Nolan aware Pt is in room now. Denies any pain or nausea.
--- NOTE | 2022-01-27 18:10 | PC.NURSE ---
Day shift: Med rec done by this freelance writer and per Dr Nolan no known home meds was selected.
[2022-01-27 20:55] LABS: Troponin I 0.075 ng/mL (0.01-0.034)
[2022-01-27] MEDS: APIXABAN 5 MG TABLET PO (22:16)
[2022-01-28 00:43] VITALS: BP 164/107; PULSE 88; RESP 25; TEMP 36.6; O2SAT 93
[2022-01-28 05:35] VITALS: BP 148/96; PULSE 91; RESP 20; TEMP 37; O2SAT 94
[2022-01-28 06:09] LABS: Add Manual Diff / Slide Review NO; Basophils Absolute Auto 0 /uL (0-100); Basophils Percent Auto 0.3 % (0-2); Eosinophils Absolute Auto 0 /uL (0-450); Hematocrit 41.8 % (36-46); Hemoglobin 14.1 g/dL (12.0-16.0); Lymphocytes Absolute Auto 900 /uL (1100-4500); Lymphocytes Percent Auto 11.9 % (25-40); Mean Corpuscular HGB Conc 33.8 % (30-36); Mean Corpuscular Hemoglobin 28.7 PG (26-34); Mean Corpuscular Volume 85.1 fL (80-100); Monocytes Absolute Auto 700 /uL (0-900); Monocytes Percent Auto 9.2 % (3-14); Neutrophils Absolute Auto 6100 /uL (1500-7000); Neutrophils Percent Auto 78.6 % (50-75); Platelet Count 203 X10^3/uL (150-400); Red Blood Cell Count 4.91 X10^6/uL (4.0-5.2); Red Cell Distribution Width 14.6 % (11.6-14.8); White Blood Cell Count 7.8 X10^3/uL (4.5-11.0)
[2022-01-28 06:23] LABS: Alanine Aminotransferase 21 IU/L (<35); Albumin 4.1 g/dL (3.5-5.0); Albumin Globulin Ratio 1.1 (1.0-2.8); Alkaline Phosphatase 77 U/L (38-126); Aspartate Aminotransferase 29 IU/L (14-36); BUN Creatinine Ratio 25.8 (6-22); Bilirubin Total 0.7 mg/dL (0.2-1.3); Blood Urea Nitrogen 23 mg/dL (7-17); Calcium 8.9 mg/dL (8.4-10.2); Carbon Dioxide 22 mmol/L (22-32); Chloride 105 mmol/L (98-107); Cholesterol 169 mg/dL (140-199); Estimated Glomerular Filt Rate > 60 mL/min (>60); Globulin 3.7 g/dL (1.7-4.1); Glucose 126 mg/dL (80-110); HDL Cholesterol 47 mg/dL (40-60); HEMOLYSIS < 15 (0-50); LDL Cholesterol Calculated 106 mg/dL (<100); Potassium 4.1 mmol/L (3.4-5.1); Sodium 140 mmol/L (137-145); Total Protein 7.8 g/dL (6.3-8.2); Triglycerides 80 mg/dL (35-150)
[2022-01-28 06:24] LABS: Hemoglobin A1C% w Est Avg Glu 5.2 % (4.0-6.0)
[2022-01-28 06:53] LABS: TSH w/ Reflex to FT4 2.13 uIU/mL (0.47-4.68)
[2022-01-28] MEDS: APIXABAN 5 MG TABLET PO (07:27)
[2022-01-28] MEDS: BENZONATATE 100 MG CAPSULE PO (07:27)
[2022-01-28 07:36] VITALS: O2SAT 94
[2022-01-28] MEDS: ALBUTEROL/IPRATROPIUM 3 ML AMPUL INH ×2 (07:38→09:18)
[2022-01-28 08:56] VITALS: BP 146/70; PULSE 84; RESP 22; O2SAT 92
[2022-01-28 09:24] VITALS: PULSE 89; RESP 24; O2SAT 90
--- NOTE | 2022-01-28 10:46 | CM.DANOTE ---
WAIP Assessment: Payor: [place] PCP: Unknown-In [place] Pt is an 86 y.o. F who presented to the ED with chief complaint of increased SOB and wheezing. Pt has a history of cardiac VA, stents, hypertension, a fib, and blood clots who has stopped all her meds including coumadin in the past year. Pt admitted under observation for respiratory distress and acute CHF. DCP unable to enter room but was able to get a hold of the patient via phone. Pt introduced herself and role. Pt states that she is visiting her granddaughter here in [place] and pt currently resides in [place]. Pt states that she is independent and lives alone. Pt denies any DME use. Pt states she does all her shopping and cooking and still drives POV. Pt declines any needs. Pt is wanting to get discharged today after echocardiogram. Pt states that her granddaughter will pick her up from the hospital when she is discharged. P: Once pt is medically stable for discharge, pt to discharge back to granddaughters house via granddaughter POV. Katty Mcleod RN/STEPHANIE Discharge Planning/Care Management CM Discharge Assessment Start: 01/28/22 08:35 Freq: Status: Active Protocol: Document 01/28/22 10:45 SERG (Rec: 01/28/22 10:46 SERG [id number]) Discharge Planning Assessment Assigned Thrill Performer Katty Mcleod RN/STEPHANIE Advance Directives? Yes Advance Directives on File pt is out of town, AD is at home. History Provided By Patient Prior Living Arrangements House Type of transporation used prior to Drives own vehicle admit Independent with ADL's Yes Is patient alert and oriented? Yes Discharge Plan Home Referrals Initiated None needed Whiteboard Updated in Patient Room with No name and ext. # of Thrill Performer Comment Unable to enter room due to droplet precautions. Review Status In Process Please Provide Date Initial DC 01/28/22 Assessment Was Performed Next Review Type Continued Stay Review
--- NOTE | 2022-01-28 11:08 | DI.ECHO.S_ITS ---
+ + Interpretation Summary Ventricular paced rhythm The left ventricle is borderline dilated. There is mild concentric left ventricular hypertrophy. The ejection fraction is estimated to be 50-55% with septal dyskinesis secondary to paced underlying rhythm. The right ventricle is mildly dilated. Both atria are severely dilated. There is mild mitral regurgitation. There is mild aortic valve sclerosis. The right ventricular systolic pressure is estimated to be at least 38 mmHg based on an estimated right atrial pressure of 3 mm Hg. There is a pacemaker lead in the right ventricle. Procedure: A two-dimensional transthoracic echocardiogram with color flow and Doppler was performed. The study quality was technically adequate. There is no prior echocardiogram noted for this patient. Ventricular paced rhythm. Left Ventricle: The left ventricle is borderline dilated. There is mild concentric left ventricular hypertrophy. The ejection fraction is estimated to be 50-55%. There is apical hypokinesis. There is apical inferior wall hypokinesis. There is mid inferior wall hypokinesis. Diastolic parameters not assessed. Possible grade 2 diastolic dysfunction given severe LA enlargement. Right Ventricle: The right ventricle is mildly dilated. There is a pacemaker lead in the right ventricle. The right ventricular systolic function is normal. Atria: Both atria are severely dilated. The interatrial septum grossly appears intact with no obvious evidence for an atrial septal defect. Mitral Valve: There is mild mitral annular calcification. The mitral valve leaflets appear mildly thickened, but open well. There is mild mitral regurgitation. Aortic Valve: There is mild aortic valve sclerosis. There is trace aortic regurgitation. Tricuspid Valve: The tricuspid valve leaflets are thin and pliable. There is mild tricuspid regurgitation. The right ventricular systolic pressure is estimated to be at least 38 mmHg based on an estimated right atrial pressure of 3 mm Hg. Pulmonic Valve: The pulmonic valve is normal in structure and function. There is a trace or physiologic amount of pulmonic regurgitation. Great Vessels: The aortic root is normal size. The dimensions of the ascending aorta are normal. The IVC is of normal diameter and collapses greater than 50% with a sniff. This suggests a low right atrial pressure of 3 mm Hg. Pericardium/ Pleura There is no pericardial effusion. There is no pleural effusion. MMode/2D Measurements & Calculations LVIDd: 5.5 cm LVOT diam: 2.1 cm LVIDs: 3.8 cm Ao root diam: 2.7 cm FS: 30.3 % asc Aorta Diam: 3.1 cm IVSd: 1.2 cm LVPWd: 1.0 cm LV stroud. diameter/BSA (cm/m^2): 2.5 LV sys. diameter/BSA (cm/m^2): 1.7 LA A2 area: 42.9 cm2 RA long axis: 7.9 cm LA A4 area: 41.9 cm2 RA area: 30.3 cm2 LA length (vol): 8.7 cm RA vol: 99.3 ml LA vol: 174.5 ml RA : 45.1 ml/m2 LA vol index: 79.4 ml/m2 TAPSE: 1.5 cm Doppler Measurements & Calculations Ao V2 max: 174.1 cm/sec LVOT Max Fab: 87.8 cm/sec Ao V2 mean: 122.5 cm/sec LV V1 max P.1 mmHg Ao max P.1 mmHg LV V1 VTI: 14.6 cm Ao mean P.7 mmHg WILLIAM(I,D): 1.8 cm2 Ao V2 VTI: 29.4 cm WILLIAM(V,D): 1.8 cm2 sev ratio: 0.50 WILLIAM indexed to BSA (cm^2/m^2): 0.81 TR max fab: 295.2 cm/sec SV(LVOT): 52.0 ml TR max P.9 mmHg Reading Physician:PM
[2022-01-28 11:13] VITALS: O2SAT 93
--- NOTE | 2022-01-28 11:45 | PM.DS.1 ---
History of Present Illness History of Present Illness Date Patient Seen: 01/28/22 Time Patient Seen: 11:45 Chief complaint: cough weezing breathing fast x7 days Narrative: This is an 86 year old female with a past medical history of CAD with prior cardiac stenting a couple of years ago, heart failure, hypertension, chronic atrial fibrillation with permanent pacemaker placement, prior DVT in her lower extremities who is visiting from [place] for the past week and a half with her daughter. The patient states that she stopped taking her medications 2 months ago, around the time of daylight savings after her implementation specialist would not see her because she was an hour late after the time change. Since then the patient has not had any symptoms but starting week ago she noticed a worsening cough that has been keeping her up at night and worsening shortness of breath. She denies any chest pain, nausea, vomiting, abdominal pain, dysuria, though does note some urinary frequency. She denies any diarrhea or constipation, lower extremity edema, or rash. She does have some mild orthopnea and her cough has been worse at night. She denies any known sick contacts, fever, chills, headache, or vision changes. She does not have a sore throat, or rhinorrhea. In the emergency room, the patient did have intermittent desaturations to 89% on room air, though these were not sustained and during my evaluation she was above 92% on room air. She was tachypneic in the mid 30s with audible wheezing. Initially she was quite hypertensive but was given both furosemide and Bumex, and a few hours later her she was borderline hypotensive. Her breathing she states did not improve much after initial diuresis. She feels quite similar to when she came in. Chest x-ray showed mild vascular congestion, as interpreted by me. CT angiogram was performed which did not show evidence of PE, but did show evidence of vascular congestion. Laboratory evaluation revealed an unremarkable CBC, coagulation studies, and basic chemistry evaluation. Troponin was initially elevated at 0.151, which down trended to 0.124 on repeat. ProBNP was elevated at 3980. Urinalysis was grossly positive with many wbc's, nitrate positive, and many urine bacteria. Respiratory PCR panel was also positive for parainfluenza 3. COVID-19 testing was negative. Patient was admitted for further management of her respiratory distress, likely secondary to a combination of CHF exacerbation in the setting of medications cessation, and an acute parainfluenza infection. Prior medications per review of electronic records (She has, as noted above, not taken these in many months) Allopurinol 100 mg b.i.d., digoxin 250 mcg daily, furosemide 40 mg daily, levothyroxine 75 mcg daily, metoprolol 100 mg b.i.d., sertraline 50 mg daily, clopidogrel 75 mg daily, coumadin (unknown dose). Discharge Providers Provider Date of admission: 01/27/22 15:58 Discharge Date: 01/28/22 Consults: 01/27/22 16:34 Consult to Respiratory Therapy Evaluate & Treat Comment: Physician Instructions: Evaluate and treat Discharge provider: Daisy Pfeiffer DO Summary Hospital Course Discharge Diagnosis: 1. Respiratory distress 2. Acute on chronic heart failure, diastolic, present on admission 3. Parainfluenza infection, possible pneumonia 4. chronic atrial fibrillation with PPM placement. 5. Mycoardial injury, in setting of known CAD s/p stenting with medication cessation 6. Acute cystitis Hospital Course: This is an 86-year-old female with a past medical history of chronic heart failure, chronic atrial fibrillation with pacemaker placement who was visiting from [place] who presented to the emergency room in respiratory distress. She was tachypneic and audibly wheezing on presentation but had no hypoxia. She had stopped taking her medications a few months ago. She was given diuresis in the emergency room with both furosemide and bumetanide. Another dose bumetanide was given in the morning at the recommendation of Cardiology who was consulted in the emergency room. The patient also tested positive for a parainfluenza 3 infection on her respiratory panel. EKG showed a paced rhythm and over the course of her stay she appear to be in a paced rhythm the entire time. The patient had no further symptoms the following morning and felt well. Echocardiogram was performed which showed an ejection fraction of 50-55% but no focal wall motion abnormalities. Her home medications were reconciled, and on discharge she was resumed on rivaroxaban per her request, metoprolol, and furosemide. She was also found to have an acute cystitis with a positive urinary tract infection and Gram-negative bacilli in her culture thus far. She was discharged on nitrofurantoin for 5 days. I recommend follow-up with her primary care provider and implementation specialist in [place]. Patient also reported not taking her levothyroxine for the last few months, and given her normal TSH it does not appear that levothyroxine is necessary at this time. She also denied a history of gout so allopurinol was discontinued. I did not resume the patient's digoxin given concern for short outpatient follow-up and concern for possible toxicity. I recommended she follow-up with her implementation specialist for possible re-initiation of digoxin. Exam Vital Signs (past 8 hours): - 01/28/22 05:35 01/28/22 07:36 01/28/22 07:36 Temperature 98.6 F Pulse Rate 91 H Respiratory Rate 20 Blood Pressure 148/96 H Pulse Oximetry 94 94 Oxygen Delivery Method Nasal Cannula Room Air Oxygen Flow Rate 01/28/22 08:56 01/28/22 09:24 01/28/22 11:13 Temperature Pulse Rate 84 89 Respiratory Rate 22 24 Blood Pressure 146/70 H Pulse Oximetry 92 90 L 93 Oxygen Delivery Method Room Air Room Air Oxygen Flow Rate 0 Oxygen Delivery Method Room Air Oxygen Flow Rate 0 Narrative Exam Narrative: General:? Patient is well developed and well nourished, no acute distress HEENT:? Normocephalic, atraumatic, extraocular muscles intact, oral pharynx is clear and mucous membranes are moist. Chest:? Normal AP diameter and contour without kyphoscoliosis, no tachypnea, equal chest rise bilaterally. Lungs:? Clear to auscultation bilaterally with no wheezing, rhonchi. There were bibasilar rales. Cardio:?RRR no m/r/g. Abdomen: S NT ND. Musculoskeletal:? Muscle strength and tone are equal within normal limits, no deformity. Extremities: trace bilateral non-pitting edema, no joint effusions Skin:? Pale,? Warm to touch,dry and intact with LE venous stasis changes, mild. Neuro:? Alert and orientated x3,? sensation to touch intact in all extremities, no gross deficits noted of cranial nerves. Psych:? Patient has a well-kept appearance, appropriate affect, mental status attitude thought context and judgment are appropriate for age. Objective Imaging Echo: Radiologist's impression: [facility] +---------+ : : [address] : : : : [place] : : : : [id number] : : : : Phone: [phone]+ Echocardiogram Report + + :Name: FLAVIO SALMON Study Date: 01/28/2022 Height: 66 in : :[facility] ReadingLocation: Weight: 250 lb : : Gender: Female BSA: 2.2 m2 : :: 1935 Age: 86 yrs BP: 146/70 mmHg: :Reason For Study: SOB : :Ordering Physician: MARGARETTE, : :DAISY BUTLER Performed By: George Wong : :Referring: DAISY PFEIFFER : + + Interpretation Summary Ventricular paced rhythm The left ventricle is borderline dilated. There is mild concentric left ventricular hypertrophy. The ejection fraction is estimated to be 50-55% with septal dyskinesis secondary to paced underlying rhythm. The right ventricle is mildly dilated. Both atria are severely dilated. There is mild mitral regurgitation. There is mild aortic valve sclerosis. The right ventricular systolic pressure is estimated to be at least 38 mmHg based on an estimated right atrial pressure of 3 mm Hg. There is a pacemaker lead in the right ventricle. Procedure: A two-dimensional transthoracic echocardiogram with color flow and Doppler was performed. The study quality was technically adequate. There is no prior echocardiogram noted for this patient. Ventricular paced rhythm. Left Ventricle: The left ventricle is borderline dilated. There is mild concentric left ventricular hypertrophy. The ejection fraction is estimated to be 50-55%. There is apical hypokinesis. There is apical inferior wall hypokinesis. There is mid inferior wall hypokinesis. Diastolic parameters not assessed. Possible grade 2 diastolic dysfunction given severe LA enlargement. Right Ventricle: The right ventricle is mildly dilated. There is a pacemaker lead in the right ventricle. The right ventricular systolic function is normal. Atria: Both atria are severely dilated. The interatrial septum grossly appears intact with no obvious evidence for an atrial septal defect. Mitral Valve: There is mild mitral annular calcification. The mitral valve leaflets appear mildly thickened, but open well. There is mild mitral regurgitation. Aortic Valve: There is mild aortic valve sclerosis. There is trace aortic regurgitation. Tricuspid Valve: The tricuspid valve leaflets are thin and pliable. There is mild tricuspid regurgitation. The right ventricular systolic pressure is estimated to be at least 38 mmHg based on an estimated right atrial pressure of 3 mm Hg. Pulmonic Valve: The pulmonic valve is normal in structure and function. There is a trace or physiologic amount of pulmonic regurgitation. Great Vessels: The aortic root is normal size. The dimensions of the ascending aorta are normal. The IVC is of normal diameter and collapses greater than 50% with a sniff. This suggests a low right atrial pressure of 3 mm Hg. Pericardium/ Pleura There is no pericardial effusion. There is no pleural effusion. MMode/2D Measurements & Calculations LVIDd: 5.5 cm LVOT diam: 2.1 cm LVIDs: 3.8 cm Ao root diam: 2.7 cm FS: 30.3 % asc Aorta Diam: 3.1 cm IVSd: 1.2 cm LVPWd: 1.0 cm LV stroud. diameter/BSA (cm/m^2): 2.5 LV sys. diameter/BSA (cm/m^2): 1.7 LA A2 area: 42.9 cm2 RA long axis: 7.9 cm LA A4 area: 41.9 cm2 RA area: 30.3 cm2 LA length (vol): 8.7 cm RA vol: 99.3 ml LA vol: 174.5 ml RA : 45.1 ml/m2 LA vol index: 79.4 ml/m2 TAPSE: 1.5 cm Doppler Measurements & Calculations Ao V2 max: 174.1 cm/sec LVOT Max Fab: 87.8 cm/sec Ao V2 mean: 122.5 cm/sec LV V1 max P.1 mmHg Ao max P.1 mmHg LV V1 VTI: 14.6 cm Ao mean P.7 mmHg WILLIAM(I,D): 1.8 cm2 Ao V2 VTI: 29.4 cm WILLIAM(V,D): 1.8 cm2 sev ratio: 0.50 WILLIAM indexed to BSA (cm^2/m^2): 0.81 TR max fab: 295.2 cm/sec SV(LVOT): 52.0 ml TR max P.9 mmHg Reading Physician:PM Labs Result Diagrams: 01/28/22 05:42 01/28/22 05:42 Labs: Laboratory Results - last 24 hr 01/27/22 01/27/22 01/27/22 11:24 11:42 11:42 WBC 8.1 RBC 4.89 Hgb 14.1 Hct 41.9 MCV 85.6 MCH 28.8 MCHC 33.6 RDW 14.9 H Plt Count 203 Neut % (Auto) 69.1 Lymph % (Auto) 16.7 L [place] % (Auto) 13.2 Eos % (Auto) 0.1 L Baso % (Auto) 0.9 Neut # (Auto) 5600 Lymph # (Auto) 1300 [place] # (Auto) 1100 H Eos # (Auto) 0 Baso # (Auto) 100 PT INR APTT Sodium 138 Potassium 4.0 Chloride 105 Carbon Dioxide 25 BUN 19 H Creatinine 1.03 Estimated GFR 54 L BUN/Creatinine Ratio 18.4 Glucose 112 H Hemoglobin A1c Calcium 9.0 Magnesium 1.7 Total Bilirubin 1.0 AST 33 ALT 21 Alkaline Phosphatase 83 Total Creatine Kinase 153 H CK-MB (CK-2) 1.49 CK-MB (CK-2) Rel Index 1.0 L Troponin I 0.151 H* NT-Pro-B Natriuret Pep Total Protein 7.9 Albumin 4.3 Globulin 3.6 Albumin/Globulin Ratio 1.2 Triglycerides Cholesterol LDL Cholesterol, Calc HDL Cholesterol Lipase 46 TSH Urine Color Urine Appearance Urine pH Ur Specific [place] Urine Protein Urine Glucose (UA) Urine Ketones Urine Occult Blood Urine Nitrate Urine Bilirubin Urine Urobilinogen Ur Leukocyte Esterase Urine RBC Urine WBC Ur Squamous Epith Cells Urine Bacteria Ur Culture Indicated? Chlamy pneumoniae PCR Adenovirus (PCR) B. pertussis DNA (PCR) B.parapertussis DNA PCR Coronavirus OC43 (PCR) Coronavirus HKU1 (PCR) Coronavirus 229E (PCR) SARS-CoV-2 (PCR) Negative Coronavirus NL63 (PCR) Human Metapneumovir PCR Influenza Type A (PCR) Influenza Type B (PCR) M. pneumoniae (PCR) Parainfluenza 1 (PCR) Parainfluenza 2 (PCR) Parainfluenza 3 (PCR) Parainfluenza 4 (PCR) RSV (PCR) Entero/Rhino (PCR) 01/27/22 01/27/22 01/27/22 11:42 11:42 12:00 WBC RBC Hgb Hct MCV MCH MCHC RDW Plt Count Neut % (Auto) Lymph % (Auto) [place] % (Auto) Eos % (Auto) Baso % (Auto) Neut # (Auto) Lymph # (Auto) [place] # (Auto) Eos # (Auto) Baso # (Auto) PT 12.3 INR 1.1 APTT 28 Sodium Potassium Chloride Carbon Dioxide BUN Creatinine Estimated GFR BUN/Creatinine Ratio Glucose Hemoglobin A1c Calcium Magnesium Total Bilirubin AST ALT Alkaline Phosphatase Total Creatine Kinase CK-MB (CK-2) CK-MB (CK-2) Rel Index Troponin I NT-Pro-B Natriuret Pep 3980 H Total Protein Albumin Globulin Albumin/Globulin Ratio Triglycerides Cholesterol LDL Cholesterol, Calc HDL Cholesterol Lipase TSH Urine Color Yellow Urine Appearance Clear Urine pH 5.0 Ur Specific [place] 1.020 Urine Protein 1+ H Urine Glucose (UA) Negative Urine Ketones Negative Urine Occult Blood 3+ H Urine Nitrate Positive H Urine Bilirubin Negative Urine Urobilinogen 0.2 Ur Leukocyte Esterase 2+ H Urine RBC 10-30/hpf H Urine WBC 30-100/hpf H Ur Squamous Epith Cells 5-10 /hpf H Urine Bacteria Many (>30) H Ur Culture Indicated? Specimen cultured Chlamy pneumoniae PCR Adenovirus (PCR) B. pertussis DNA (PCR) B.parapertussis DNA PCR Coronavirus OC43 (PCR) Coronavirus HKU1 (PCR) Coronavirus 229E (PCR) SARS-CoV-2 (PCR) Coronavirus NL63 (PCR) Human Metapneumovir PCR Influenza Type A (PCR) Influenza Type B (PCR) M. pneumoniae (PCR) Parainfluenza 1 (PCR) Parainfluenza 2 (PCR) Parainfluenza 3 (PCR) Parainfluenza 4 (PCR) RSV (PCR) Entero/Rhino (PCR) 01/27/22 01/27/22 01/27/22 13:35 13:51 20:11 WBC RBC Hgb Hct MCV MCH MCHC RDW Plt Count Neut % (Auto) Lymph % (Auto) [place] % (Auto) Eos % (Auto) Baso % (Auto) Neut # (Auto) Lymph # (Auto) [place] # (Auto) Eos # (Auto) Baso # (Auto) PT INR APTT Sodium Potassium Chloride Carbon Dioxide BUN Creatinine Estimated GFR BUN/Creatinine Ratio Glucose Hemoglobin A1c Calcium Magnesium Total Bilirubin AST ALT Alkaline Phosphatase Total Creatine Kinase CK-MB (CK-2) CK-MB (CK-2) Rel Index Troponin I 0.124 H* 0.075 H NT-Pro-B Natriuret Pep Total Protein Albumin Globulin Albumin/Globulin Ratio Triglycerides Cholesterol LDL Cholesterol, Calc HDL Cholesterol Lipase TSH Urine Color Urine Appearance Urine pH Ur Specific [place] Urine Protein Urine Glucose (UA) Urine Ketones Urine Occult Blood Urine Nitrate Urine Bilirubin Urine Urobilinogen Ur Leukocyte Esterase Urine RBC Urine WBC Ur Squamous Epith Cells Urine Bacteria Ur Culture Indicated? Chlamy pneumoniae PCR Not detected Adenovirus (PCR) Not detected B. pertussis DNA (PCR) Not detected B.parapertussis DNA PCR Not detected Coronavirus OC43 (PCR) Not detected Coronavirus HKU1 (PCR) Not detected Coronavirus 229E (PCR) Not detected SARS-CoV-2 (PCR) Not detected Coronavirus NL63 (PCR) Not detected Human Metapneumovir PCR Not detected Influenza Type A (PCR) Not detected Influenza Type B (PCR) Not detected M. pneumoniae (PCR) Not detected Parainfluenza 1 (PCR) Not detected Parainfluenza 2 (PCR) Not detected Parainfluenza 3 (PCR) Detected H Parainfluenza 4 (PCR) Not detected RSV (PCR) Not detected Entero/Rhino (PCR) Not detected 01/28/22 01/28/22 01/28/22 05:42 05:42 05:42 WBC 7.8 RBC 4.91 Hgb 14.1 Hct 41.8 MCV 85.1 MCH 28.7 MCHC 33.8 RDW 14.6 Plt Count 203 Neut % (Auto) 78.6 H Lymph % (Auto) 11.9 L [place] % (Auto) 9.2 Eos % (Auto) 0.0 L Baso % (Auto) 0.3 Neut # (Auto) 6100 Lymph # (Auto) 900 L [place] # (Auto) 700 Eos # (Auto) 0 Baso # (Auto) 0 PT INR APTT Sodium 140 Potassium 4.1 Chloride 105 Carbon Dioxide 22 BUN 23 H Creatinine 0.89 Estimated GFR > 60 BUN/Creatinine Ratio 25.8 H Glucose 126 H Hemoglobin A1c 5.2 Calcium 8.9 Magnesium 2.0 Total Bilirubin 0.7 AST 29 ALT 21 Alkaline Phosphatase 77 Total Creatine Kinase CK-MB (CK-2) CK-MB (CK-2) Rel Index Troponin I NT-Pro-B Natriuret Pep Total Protein 7.8 Albumin 4.1 Globulin 3.7 Albumin/Globulin Ratio 1.1 Triglycerides 80 Cholesterol 169 LDL Cholesterol, Calc 106 H HDL Cholesterol 47 Lipase TSH Urine Color Urine Appearance Urine pH Ur Specific [place] Urine Protein Urine Glucose (UA) Urine Ketones Urine Occult Blood Urine Nitrate Urine Bilirubin Urine Urobilinogen Ur Leukocyte Esterase Urine RBC Urine WBC Ur Squamous Epith Cells Urine Bacteria Ur Culture Indicated? Chlamy pneumoniae PCR Adenovirus (PCR) B. pertussis DNA (PCR) B.parapertussis DNA PCR Coronavirus OC43 (PCR) Coronavirus HKU1 (PCR) Coronavirus 229E (PCR) SARS-CoV-2 (PCR) Coronavirus NL63 (PCR) Human Metapneumovir PCR Influenza Type A (PCR) Influenza Type B (PCR) M. pneumoniae (PCR) Parainfluenza 1 (PCR) Parainfluenza 2 (PCR) Parainfluenza 3 (PCR) Parainfluenza 4 (PCR) RSV (PCR) Entero/Rhino (PCR) 01/28/22 05:42 WBC RBC Hgb Hct MCV MCH MCHC RDW Plt Count Neut % (Auto) Lymph % (Auto) [place] % (Auto) Eos % (Auto) Baso % (Auto) Neut # (Auto) Lymph # (Auto) [place] # (Auto) Eos # (Auto) Baso # (Auto) PT INR APTT Sodium Potassium Chloride Carbon Dioxide BUN Creatinine Estimated GFR BUN/Creatinine Ratio Glucose Hemoglobin A1c Calcium Magnesium Total Bilirubin AST ALT Alkaline Phosphatase Total Creatine Kinase CK-MB (CK-2) CK-MB (CK-2) Rel Index Troponin I NT-Pro-B Natriuret Pep Total Protein Albumin Globulin Albumin/Globulin Ratio Triglycerides Cholesterol LDL Cholesterol, Calc HDL Cholesterol Lipase TSH 2.13 Urine Color Urine Appearance Urine pH Ur Specific [place] Urine Protein Urine Glucose (UA) Urine Ketones Urine Occult Blood Urine Nitrate Urine Bilirubin Urine Urobilinogen Ur Leukocyte Esterase Urine RBC Urine WBC Ur Squamous Epith Cells Urine Bacteria Ur Culture Indicated? Chlamy pneumoniae PCR Adenovirus (PCR) B. pertussis DNA (PCR) B.parapertussis DNA PCR Coronavirus OC43 (PCR) Coronavirus HKU1 (PCR) Coronavirus 229E (PCR) SARS-CoV-2 (PCR) Coronavirus NL63 (PCR) Human Metapneumovir PCR Influenza Type A (PCR) Influenza Type B (PCR) M. pneumoniae (PCR) Parainfluenza 1 (PCR) Parainfluenza 2 (PCR) Parainfluenza 3 (PCR) Parainfluenza 4 (PCR) RSV (PCR) Entero/Rhino (PCR) PFSH Medical History (Updated 01/27/22 @ 16:22 by Daisy Pfeiffer DO) CAD (coronary artery disease) DVT (deep venous thrombosis) Heart failure HTN (hypertension) Pacemaker Paroxysmal atrial fibrillation Surgical History (Updated 01/27/22 @ 16:10 by Daisy Pfeiffer DO) H/O exploratory laparotomy H/O heart artery stent Family History (Updated 01/27/22 @ 16:10 by Daisy Pfeiffer DO) Father Hypertension Mother Hypertension Social History household members: children Smoking Status: Never smoker alcohol intake: never Discharge Plan Discharge Plan Patient Disposition: Home Provider Discharge Comment: You were admitted to the hospital with trouble breathing, you improved with removal of fluid. Your medications are being changed slightly, please follow up with your PCP and implementation specialist at home for continued medications. Discharge orders & Medications Prescriptions: New nitrofurantoin macrocrystal 100 mg capsule 100 mg PO BID 5 Days Qty: 10 0RF Rx Instructions: must administer with a meal/food rivaroxaban 20 mg tablet 20 mg PO QPM 30 Days Qty: 30 0RF Rx Instructions: must administer with evening meal furosemide 40 mg tablet 40 mg PO QAM 30 Days Qty: 30 0RF Continued metoprolol tartrate 100 mg tablet 100 mg PO QAM 30 Days Qty: 30 0RF Discontinued furosemide 40 mg tablet 40 mg PO QAM allopurinol 100 mg tablet 100 mg PO QAM digoxin 250 mcg (0.25 mg) tablet 250 mcg PO QAM warfarin [Coumadin] 3 mg Tablet 3 mg PO [id number] levothyroxine 75 mcg tablet 75 mcg PO QAM potassium chloride 8 mEq tablet extended release 8 meq PO QAM warfarin [Coumadin] 2 mg Tablet 2 mg PO QMWF Diet/Activity/Treatments Diet: Diet as Tolerated and Low-sodium Activity: As tolerated Visit Report/Discharge Packet Instructions: Heart Failure, Heart-Healthy Diet, DI for Heart Failure Discharge Data Attending Provider: Daisy Pfeiffer
--- NOTE | 2022-01-28 12:31 | PC.NURSE ---
Day shift: Paperwork signed and all questions answered. Pt has all personal belongings. Family member in room for d/c and is an RN. MD scripts sent electronic to pharmacy by . Taken to car via at approx 1230. Family member is driving her home. Pt plans to travel back home to [place] later this week.
== END 2022-01-28 12:35 | disposition home or self-care (01) ==
LOC: ED 15:49 → AC 15:58
PROVIDERS: Admitting Provider Internal Medicine; Emergency Provider Emergency Medicine; Referring Provider Emergency Medicine; Visit Provider Internal Medicine
DX: R06.03 Acute respiratory distress (principal); R06.02 Shortness of breath; B34.8 Other viral infections of unspecified site; I25.2 Old myocardial infarction; I50.33 Acute on chronic diastolic (congestive) heart failure; I48.20 Chronic atrial fibrillation, unspecified; N30.00 Acute cystitis without hematuria; Z95.0 Presence of cardiac pacemaker; B96.89 Other specified bacterial agents as the cause of diseases classified elsewhere; Z20.822 Contact with and (suspected) exposure to COVID-19
CPT/HCPCS: 36415; 71045; 71275; 80053; 80061; 81001; 82550; 82553; 82962; 83036; 83690; 83735; 83880; 84443; 84484; 85025; 85610; 85730; 87077; 87086; 87186; 87633; 87635; 93005; 93010; 93306; 94640; 94760; 96365; 96366; 96375; 99285; C9803; G0378; J0696; J1644; J2930; J7613; Q9967